=== PATIENT | female | born 1955 | race Caucasian/White ===

== ENCOUNTER 2017-04-10 07:45 | Outpatient (CLI) | payer OTHER ==
--- NOTE | 2017-04-11 13:32 | Mammography Report ---
DIGITAL SCREENING MAMMOGRAM: 04/10/2017 CLINICAL INDICATION: A 61-year-old with family history of breast cancer for screening. COMPARISON: 11/2014, 08/2013, 08/2011. TECHNIQUE: Routine CC and MLO projections were obtained of the breasts. FINDINGS: Parenchymal tissue within the breasts is predominantly fatty replaced. There are no domina nt masses, suspicious microcalcifications, or secondary signs of malignancy. In comparison to the pre vious studies, there are no significant changes. IMPRESSION: NO MAMMOGRAPHIC EVIDENCE OF MALIGNANCY. NO SIGNIFICANT INTERVAL CHANGES. RECOMMENDATION: Screening mammography is recommended annually. BI-RADS category 1 - negative. STANDARD QUALIFYING STATEMENTS 1. This examination was reviewed with the aid of Computed-Aided Detection (CAD). 2. A negative or benign imaging report should not delay biopsy if clinically suspicious findings are present. Consider surgical consultation if warranted. More than 5% of cancers are not identified by i maging. 3. Dense breasts may obscure an underlying neoplasm. JOB #: [id number] EXT JOB #:[id number]
== END 2017-04-10 07:46 | disposition home or self-care (01) ==
LOC: DI 07:45
PROVIDERS: ATTEND Physician Assistant Medical
DX: Z12.31 Encounter for screening mammogram for malignant neoplasm of breast (principal)
CPT/HCPCS: 77067

== ENCOUNTER 2017-07-30 14:50 | Outpatient (CLI) | payer OTHER | END 2017-07-30 14:51 | disposition home or self-care (01) | LOC: LAB.R 14:50 | PROVIDERS: ATTEND Internal Medicine | DX: M25.562 Pain in left knee (principal) | CPT/HCPCS: 84550 ==

== ENCOUNTER 2021-09-13 08:00 | Outpatient (CLI) | payer OTHER ==
[2021-09-13 16:20] LABS: BASOPHILS # (AUTO) 0.1 10^3/uL (0.0-0.1); EOSINOPHILS # (AUTO) 0.1 10^3/uL (0.0-0.7); EOSINOPHILS % (AUTO) 2.1 %; HGB - HEMOGLOBIN 13.8 g/dL (12.0-16.0); LYMPHOCYTES # (AUTO) 0.9 10^3/uL (1.5-3.5); LYMPHOCYTES % (AUTO) 17.4 %; MEAN CORPUSCULAR HEMOGLOBIN 33.9 pg (27.0-31.0); MEAN CORPUSCULAR HGB CONC 32.1 g/dL (32.0-36.0); MEAN CORPUSCULAR VOLUME 105.7 fL (81.0-99.0); MONOCYTES # (AUTO) 0.4 10^3/uL (0.0-1.0); MONOCYTES % (AUTO) 7.3 %; NEUTROPHILS # (AUTO) 3.8 10^3/uL (1.5-6.6); NEUTROPHILS % (AUTO) 71.8 %; PLT - PLATELET COUNT 169 10^3/uL (130-450); RED BLOOD COUNT 4.07 10^6/uL (4.20-5.40); WHITE BLOOD COUNT 5.2 x10^3/uL (4.8-10.8)
[2021-09-13 16:48] LABS: ALBUMIN 4.3 g/dL (3.2-5.5); ALBUMIN/GLOBULIN RATIO 1.3 (1.0-2.2); ALKALINE PHOSPHATASE 91 IU/L (42-121); ALT ALANINE AMINOTRANSFERASE 54 IU/L (10-60); AST ASPARTATE AMINOTRANSFERASE 48 IU/L (10-42); BUN - BLOOD UREA NITROGEN 10 mg/dL (6-20); CARBON DIOXIDE - CO2 23 mmol/L (21-32); CHLORIDE 104 mmol/L (101-111); CHOL/HDL RATIO 4.9 (<4.4); CHOLESTEROL 214 mg/dL; CREATININE 0.8 mg/dL (0.4-1.0); GFR - MDRD 72 (>89); GLUCOSE 80 mg/dL (70-100); HDL CHOLESTEROL 44 mg/dL; LDL CHOLESTEROL,CALCULATED 137 mg/dL; LDL/HDL RATIO 3.1 (<4.4); POTASSIUM 3.9 mmol/L (3.5-5.0); SODIUM 137 mmol/L (135-145); TOTAL PROTEIN 7.6 g/dL (6.7-8.2); TRIGLYCERIDES 167 mg/dL; VLDL CHOLESTEROL 33 mg/dL
[2021-09-13 17:54] LABS: FOLATE > 49.60 ng/mL (5.90 - >24.8)
== END 2021-09-13 23:59 ==
LOC: LAB.R 08:00
PROVIDERS: ATTEND Internal Medicine
DX: Z00.00 Encounter for general adult medical examination without abnormal findings (principal); K57.92 Diverticulitis of intestine, part unspecified, without perforation or abscess without bleeding; N95.1 Menopausal and female climacteric states; E78.5 Hyperlipidemia, unspecified; G43.909 Migraine, unspecified, not intractable, without status migrainosus; M06.9 Rheumatoid arthritis, unspecified; J30.2 Other seasonal allergic rhinitis
CPT/HCPCS: 80053; 80061; 82746; 83721; 84443; 85025

== ENCOUNTER 2021-11-15 08:54 | Outpatient (CLI) | payer MEDICARE, OTHER ==
--- NOTE | 2021-11-19 16:38 | Mammography Report ---
BILATERAL DIGITAL SCREENING MAMMOGRAM 3D/2D: 11/15/2021 CLINICAL: Family history of breast cancer. Routine screening. Comparison is made to exams dated: 04/10/2017 mammogram, 11/02/2014 mammogram, and 08/23/2013 mammogram - [facility]. The tissue of both breasts is predominantly fatty. No significant masses, calcifications, or other findings are seen in either breast. There has been no significant interval change. IMPRESSION: NEGATIVE There is no mammographic evidence of malignancy. A 1 year screening mammogram is recommended. This exam was interpreted at Station ID: [id number]. NOTE: For mammograms, a report in lay terms will be sent to the patient. Approximately 15% of breast malignancies will not be visualized mammographically. In the management of a palpable breast mass, a negative mammogram must not discourage biopsy of a clinically suspicious lesion. Electronically Signed By: Alan Kent M.D. slc/penrad:11/15/2021 11:03:33 ACR BI-RADS Category 1: Negative 3341F PARENCHYMAL PATTERN: (F) - The breast(s) demonstrate(s) diffuse fatty replacement. BI-RADS CATEGORY: (1) - 1 RECOMMENDATION: (ANNUAL) - Recommend routine annual screening mammography. [id number] 1 year screening LATERALITY: (B)
== END 2021-11-15 08:55 | disposition home or self-care (01) ==
LOC: DI.N 08:54
PROVIDERS: ATTEND Internal Medicine
DX: Z12.31 Encounter for screening mammogram for malignant neoplasm of breast (principal); Z80.3 Family history of malignant neoplasm of breast

== ENCOUNTER 2022-01-24 16:23 | Outpatient (CLI) | payer MEDICARE, OTHER ==
--- NOTE | 2022-01-25 14:02 | XRAY Report ---
PROCEDURE: Cervical Spine Complete INDICATIONS: NECK PAIN TECHNIQUE: 5 views of the cervical spine acquired. COMPARISON: None. FINDINGS: Bones: No acute fractures or dislocations to the T4 level. No acute compression fractures. Multileve l cervical spondylosis noted by degenerative endplate changes, disc space loss, and endplate osteophy te formation. Findings are most pronounced at C5-6 and C6-7. There is decreased range of motion betwe en flexion and extension views with preservation of normal bony alignment. No suspicious osseous lesi ons. Craniocervical junction is intact. C1-C2 relationship is maintained. Soft tissues: No prevertebral soft tissue swelling. IMPRESSION: Cervical spine without acute fracture. Moderate multilevel cervical spondylosis most pro nounced at C5-6 and C6-7. Decreased range of motion between flexion and extension views with preservation of normal bony alignm ent. Reviewed by: Percy Boykin MD on 01/25/2022 2:01 PM PDT Approved by: Percy Boykin MD on 01/25/2022 2:01 PM PDT Station ID: [id number]
== END 2022-01-24 16:24 | disposition home or self-care (01) ==
LOC: DI 16:23
PROVIDERS: ATTEND Internal Medicine Rheumatology
DX: M06.9 Rheumatoid arthritis, unspecified (principal); M47.812 Spondylosis without myelopathy or radiculopathy, cervical region

== ENCOUNTER 2022-04-24 10:33 | Outpatient (CLI) | payer MEDICARE ==
--- NOTE | 2022-04-25 09:47 | MRI Report ---
PROCEDURE: Cervical Spine W/O INDICATIONS: RHEUMATOID ARTHRITIS, NECK PAIN TECHNIQUE: Noncontrast sagittal T1 spin echo and T2 fast spin echo, sagittal STIR, foraminal oblique sagittal T2 fast spin echo, and axial gradient echo or T2 fast spin echo through the cervical spine. COMPARISON: Correlation is made with cervical spine plain films, 01/24/2022. FINDINGS: Image quality: Excellent. Alignment and Curvature: There is reversal of the normal cervical lordosis, with the apex at the C5- C6 level. No significant AP alignment abnormality can be seen. Bone Marrow: Marrow demonstrates normal overall signal. Spinal Cord: Visualized spinal cord has normal size and signal. No cerebellar tonsillar herniation. Paraspinous Soft Tissues: No paravertebral masses. Prevertebral soft tissues are normal in thicknes s. There is a mild degree of pannus seen posterior to the dens. The dens itself does not appear signific antly eroded on these images. C2-C3: The disc height is well-preserved. There is loss of disc signal seen. Mild disc osteophyte c omplex is seen. Mild facet hypertrophy is seen. Mild bilateral neural foraminal narrowing is see n. Minimal central canal narrowing is seen. C3-C4: The disc height is well-preserved. There is loss of disc signal seen. Mild to moderate disc osteophyte complex is seen, with a mild central disc osteophyte protrusion. Mild facet hypertrophy i s seen. Moderate bilateral neural foraminal narrowing is seen. Mild central canal narrowing is se en. C4-C5: Moderate loss of disc height and signal are seen. Mild disc osteophyte complex is seen. Mi ld facet hypertrophy is seen. Moderate bilateral neural foraminal narrowing is seen. Mild central canal narrowing is seen. C5-C6: Moderate loss of disc height and signal are seen. At least moderate disc osteophyte complex i s seen, which is eccentric to the right. Mild facet hypertrophy is seen. There is mild right-sided and mild to moderate left-sided facet hypertrophy. There is moderate to severe right-sided and modera te left-sided neuroforaminal narrowing. Moderate central canal narrowing is seen. Associated mass effect is seen upon the ventral spinal cord. C6-C7: Moderate loss of disc height and signal are seen. Moderate disc osteophyte complex is seen . Uncovertebral joint hypertrophy is seen at this level. Mild to moderate facet hypertrophy is see n. There is moderate to severe left-sided and moderate right-sided neuroforaminal narrowing. Moderat e central canal narrowing is seen. Associated mass effect is seen upon the ventral spinal cord. C7-T1: Mild to moderate loss of disc height and disc signal can be seen. Moderate disc osteophyte co mplex is seen, which is eccentric to the right. Mild facet hypertrophy is seen. Moderate bilateral neuroforaminal narrowing can be seen, left worse than right. Mild central canal narrowing is seen. IMPRESSION: Multiple levels of cervical spine degenerative change are seen, which are worst inferiorly at C5-C6 a nd C6-C7. Reviewed by: Hector Coffey MD on 04/25/2022 8:46 AM [facility] Approved by: Hector Coffey MD on 04/25/2022 8:46 AM [facility] Station ID: [id number]
== END 2022-04-24 10:34 | disposition home or self-care (01) ==
LOC: DI 10:33
PROVIDERS: ATTEND Internal Medicine Rheumatology
DX: M06.9 Rheumatoid arthritis, unspecified (principal); M47.812 Spondylosis without myelopathy or radiculopathy, cervical region; M48.02 Spinal stenosis, cervical region; M50.31 Other cervical disc degeneration, high cervical region; M47.813 Spondylosis without myelopathy or radiculopathy, cervicothoracic region; M48.03 Spinal stenosis, cervicothoracic region